=== PATIENT | female | born 1940 | race Caucasian/White ===

== ENCOUNTER 2023-06-09 04:29 | Emergency (ER) | payer MEDICARE, OTHER, SELFPAY ==
--- NOTE | 2023-06-09 | ECG_ITS ---
Test Reason : rapid heart rate Blood Pressure : / mmHG Vent. Rate : 133 BPM Atrial Rate : 000 BPM P-R Int : 000 ms QRS Dur : 086 ms QT Int : 328 ms P-R-T Axes : 000 039 -36 degrees QTc Int : 488 ms Atrial fibrillation with rapid ventricular response ST & T wave abnormality, consider inferior ischemia Abnormal ECG When compared with ECG of 19-OCT-2019 05:42, Nonspecific T wave abnormality now evident in Lateral leads Referred By: Generic ED Physician Electronically Signed By:KRISTI DE LA TORRE MD
--- NOTE | ~2023-06-09 | CT_ITS ---
CT head/brain wo IV con CLINICAL INFORMATION: Reason for Exam Severe headache COMPARISON: Prior CT scan from 2019 TECHNIQUE: Department standard protocol. This CT examination was performed using dose optimization techniques as appropriate, variously including the following: *Automated exposure control *Adjustment of mA and/or kV according to patient size (this includes techniques or standardized protocols for targeted exams where dose is matched to indication/reason for exam; i.e. extremities or head) *Use of iterative reconstruction technique DLP: 778 mGy-cm FINDINGS: CEREBRAL HEMISPHERES: There is no evidence of intra-axial or extra-axial mass, hemorrhage or acute infarct. BRAIN PARENCHYMA: Deep white matter and paraventricular hypoattenuation, nonspecific; most likely changes secondary to chronic ischemia due to microvascular angiopathy. This has especially increased around the deep white matter right frontal region, cannot rule out underlying subacute territorial infarct. There is no associated bleed. SUBDURAL SPACE: No bleed. BASAL GANGLIA AND PINEAL GLAND: Unremarkable VENTRICLES: Symmetric and normal in size. CEREBELLUM AND BRAINSTEM: No space-occupying mass, hemorrhage or acute infarct. CEREBELLOPONTINE ANGLES: No lesion found. ORBITS: No intraorbital mass. VESSELS: Hyperdense left transverse sinus with Hounsfield units higher than 60 raise concern for possible venous thrombosis. No CT evidence of associated venous infarct. SKULL BASE: Unremarkable INCLUDED SINUSES AT SKULL BASE: Clear SKULL AND SKIN: No fracture or bone lesion found. 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 This has especially increased around the deep white matter right frontal region, cannot rule out underlying partial territorial infarct. There is no associated bleed. * Hyperdense left transverse sinus with Hounsfield units higher than 60 raise concern for possible venous thrombosis. No CT evidence of associated venous infarct. Consider correlation with follow-up MRV. (Referring physician staff is being called, by physician staff assistance, to be alerted of the above critical findings and recommendations.) JOSEFINA 06/09/2023 7:38 AM
[2023-06-09 04:32] VITALS: BP 195/116; PULSE 141; RESP 20; TEMP 37; O2SAT 95; BMI 23.6
[2023-06-09 05:00] LABS: Basophils Percent Auto 0.6 % (0-2); Eosinophils Absolute Auto 0.2 X10*3/uL (0.0-0.4); Eosinophils Percent Auto 2.4 % (0-4); Hematocrit 45.7 % (37.0-47.0); Hemoglobin 15.1 g/dl (12.0-16.0); Imm Gran Abs Auto 0.02 X10*3/uL (0.00-0.03); Imm Gran Pct Auto 0.3 % (0.0-0.4); Lymphocytes Percent Auto 15.1 % (20-40); MANUAL DIFF FLAG NO; Mean Corpuscular Hemoglobin 32.4 pg (27.0-33.0); Mean Corpuscular Volume 98.1 fL (80.0-98.0); Mean Platelet Volume 9.4 fL (9.4-12.3); Monocytes Absolute Auto 0.6 X10*3/uL (0.1-1.2); Monocytes Percent Auto 9.3 % (2-11); Neutrophils Absolute Auto 4.6 x10*3/uL (2.0-8.3); Neutrophils Percent Auto 72.3 % (45-73); Platelet Count 325 X10*3/uL (160-400); Red Blood Count 4.66 X10*6/uL (4.20-5.50); White Blood Count 6.4 X10*3/uL (4.8-10.8)
[2023-06-09] MEDS: Labetalol HCL 100 MG/20 ML VIAL IVPUSH (05:04)
--- NOTE | 2023-06-09 05:04 | ED.WEAKNESS ---
HPI - Weakness General Chief complaint: Weakness Stated complaint: Weakness/Dizziness Time Seen by Provider: 06/09/23 04:42 Source: patient and family () Mode of arrival: ambulatory History of Present Illness HPI Narrative: 82-year-old female with known atrial fibrillation, states that she takes medication for rate control once a day but has stopped taking her blood thinners due to a prior intracranial hemorrhage. Patient states that she got up to go to the bathroom this morning and when washing her hands started to feel weak and then wanted clean the floor and stated that her arms started to ache. She states that this all happened around 0 400, she denies any recent fever, chills, nausea/vomiting/abdominal pain denies any urinary pain/burning/frequency. Related Data Allergies Allergy/AdvReac Type Severity Reaction Status Date / Time No Known Allergies Allergy Unverified 08/16/20 14:57 [No Known Allergies*] Review of Systems Review of Systems: Pertinent positives and negatives as stated in HPI PMFSH Past Medical History Source: nursing notes reviewed Social History Social History Alcohol intake: never Smoked in Last 30 Days: No Use of substances other than those prescribed or required for medical reasons: No Advance Directives: No Advance Directives Information Provided: Yes Physical Exam Vital Signs: Vital Signs: Last Vital Signs Temp 97.8 F 06/09/23 05:24 Pulse 107 H 06/09/23 06:23 Resp 20 06/09/23 06:23 BP 159/99 H 06/09/23 06:23 Pulse Ox 94 06/09/23 06:23 O2 Del Method Room Air 06/09/23 06:23 BMI result Body Mass Index 23.6 VITAL SIGNS: Reviewed. GENERAL: Well developed, well nourished, in no acute distress. HEAD: Normocephalic/atraumatic EYES: PERRLA, EOMI EARS: Ext canals without abnormality NOSE: Nares patent bilateral OROPHARYNX: no oral lesions noted, posterior pharynx clear NECK: Supple, no adenopathy LUNGS: Normal breath sounds. No adventitious sounds or accessory muscle use. SpO2<95> CARDIOVASCULAR: IRR/IRR, rapid, and rhythm without noted murmurs, no JVD or lower extremity edema. ABDOMEN: Soft, non-tender, non-distended with bowel sounds. MUSCULOSKELETAL: No tenderness, deformities, or effusions noted on gross inspection. EXTREMITIES: No cyanosis, clubbing or edema. SKIN: Inspection of the skin reveals no rashes NEUROLOGIC: Alert and oriented x 4. Strength and sensation to light touch were grossly intact x 4. Medications Administered Discontinued Medications Generic Name Dose Route Start Last Admin Trade Name Freq PRN Reason Stop Dose Admin Acetaminophen 975 mg 06/09/23 05:19 06/09/23 05:28 Acetaminophen 325 Mg Tablet PO 06/09/23 05:20 975 mg ONCE ONE Administration Diltiazem HCl 180 mg 06/09/23 06:11 06/09/23 06:26 Diltiazem Hcl Sr 90 Mg Cap.Er.12h PO 06/09/23 06:12 180 mg ONCE ONE Administration Protocol Labetalol HCl 2.5 mg 06/09/23 04:50 06/09/23 05:04 Labetalol Hcl 100 Mg/20 Ml Vial IVPUSH 06/09/23 04:51 2.5 mg ONCE ONE Administration Metoprolol Tartrate 2.5 mg 06/09/23 05:05 06/09/23 05:06 Metoprolol Tartrate 5 Mg/5 Ml Vial IVPUSH 06/09/23 05:06 2.5 mg ONCE ONE Administration Metoprolol Tartrate 5 mg 06/09/23 05:19 06/09/23 05:28 Metoprolol Tartrate 5 Mg/5 Ml Vial IVPUSH 06/09/23 05:20 5 mg ONCE ONE Administration Metoprolol Tartrate 25 mg 06/09/23 06:11 06/09/23 06:21 Metoprolol Tartrate 25 Mg Tablet PO 06/09/23 06:12 25 mg ONCE ONE Administration Protocol Potassium Chloride 60 meq 06/09/23 05:25 06/09/23 05:36 Potassium Chloride Er 20 Meq Tab.Er.Prt PO 06/09/23 05:26 60 meq ONCE ONE Administration Medical Decision Making Medical Decision Making [facility] Narrative: 0506: 82-year-old female with history and clinical presentation consistent with atrial fibrillation with RVR, also noted to be hypertensive, will evaluate to determine etiology such as infection, anemia, electrolyte abnormalities. Patient has no focal findings. Patient received a total of 7.5 mg of Lopressor for rate control and then followed by 2.5 mg of labetalol for blood pressure control. 0613: I gave patient her oral medication of 25 mg of Lopressor tartrate and 180 mg of Cardizem. Patient still complained of headache and so received 400 mg of ibuprofen and will proceed with CT of the head to ensure no intracranial hemorrhage, patient is nonfocal. On review of all investigations, hematologic indices are negative for evidence of infection or anemia and otherwise grossly within normal limits. Chemistry indices were significant for a low potassium with normal magnesium which was repleted with 60 mEq orally. The noted increase in BNP was treated with 40 mg of Lasix p.o. overall, I suspect patient's atrial fibrillation may be attributed to poor medication adherence and the possibility of low potassium. She is strongly encouraged to follow-up with her primary care provider. Signed out to Dr Molina - CT head - UA - Headache improvement Differential Diagnosis Differential Diagnoses: The differential diagnosis associated with the presentation includes Please see the discussion above Admission/Observation Consideration of admission/observation: Escalation of care including admission/observation considered Lab Data MDM Lab Attestation statement: I reviewed the patient's lab results. Please see the discussion above 06/09/23 04:53 06/09/23 04:53 Labs: Lab Results 06/09/23 06/09/23 06/09/23 Range/Units 04:53 04:53 04:53 WBC 6.4 (4.8-10.8) X10*3/uL RBC 4.66 (4.20-5.50) X10*6/uL Hgb 15.1 (12.0-16.0) g/dl Hct 45.7 (37.0-47.0) % MCV 98.1 H (80.0-98.0) fL MCH 32.4 (27.0-33.0) pg MCHC 33.0 (31.0-35.0) g/dl RDW 13.0 (11.0-16.0) % Plt Count 325 (160-400) X10*3/uL MPV 9.4 (9.4-12.3) fL Immature Gran % (Auto) 0.3 (0.0-0.4) % Neut % (Auto) 72.3 (45-73) % Lymph % (Auto) 15.1 L (20-40) % [place] % (Auto) 9.3 (2-11) % Eos % (Auto) 2.4 (0-4) % Baso % (Auto) 0.6 (0-2) % Lymph # (Auto) 1.0 L (1.2-4.9) X10*3/uL [place] # (Auto) 0.6 (0.1-1.2) X10*3/uL Eos # (Auto) 0.2 (0.0-0.4) X10*3/uL Baso # (Auto) 0.0 (0.0-0.2) X10*3/uL Abs Immat Gran (auto) 0.02 (0.00-0.03) X10*3/uL Absolute Neuts (auto) 4.6 (2.0-8.3) x10*3/uL Absolute Nucleated RBC 0.000 (0.0-0.012) X10*3/uL Nucleated RBC % (auto) 0.0 (0.0-0.2) /100WBC PT 12.0 (10.0-13.1) SEC INR 1.0 (0.9-1.1) Sodium 143 (135-145) mmol/L Potassium 3.2 L (3.3-5.1) mmol/L Chloride 102 (96-108) mmol/L Carbon Dioxide 27 (22-29) mmol/L Anion Gap 17 (12-20) BUN 17 H (9-16) mg/dL Creatinine 0.83 (0.5-1.4) mg/dL Estim Creat Clear Calc 49.7 Estimated GFR > 60 Random Glucose 128 H (60-115) mg/dL Calcium 10.1 (8.4-10.2) mg/dL Magnesium 2.1 (1.6-2.6) mg/dL Total Bilirubin 1.0 (0.0-1.0) mg/dL AST 19 (5-31) U/L ALT 8 (0-31) U/L Alkaline Phosphatase 74 (39-117) U/L Troponin I High Sens (<3.5-17.0) ng/L B-Natriuretic Peptide (<100) pg/mL Total Protein 7.7 (6.5-8.0) g/dL Albumin 4.0 (3.5-5.0) g/dL 07/11/23 07/11/23 Range/Units 04:53 04:53 WBC (4.8-10.8) X10*3/uL RBC (4.20-5.50) X10*6/uL Hgb (12.0-16.0) g/dl Hct (37.0-47.0) % MCV (80.0-98.0) fL MCH (27.0-33.0) pg MCHC (31.0-35.0) g/dl RDW (11.0-16.0) % Plt Count (160-400) X10*3/uL MPV (9.4-12.3) fL Immature Gran % (Auto) (0.0-0.4) % Neut % (Auto) (45-73) % Lymph % (Auto) (20-40) % [place] % (Auto) (2-11) % Eos % (Auto) (0-4) % Baso % (Auto) (0-2) % Lymph # (Auto) (1.2-4.9) X10*3/uL [place] # (Auto) (0.1-1.2) X10*3/uL Eos # (Auto) (0.0-0.4) X10*3/uL Baso # (Auto) (0.0-0.2) X10*3/uL Abs Immat Gran (auto) (0.00-0.03) X10*3/uL Absolute Neuts (auto) (2.0-8.3) x10*3/uL Absolute Nucleated RBC (0.0-0.012) X10*3/uL Nucleated RBC % (auto) (0.0-0.2) /100WBC PT (10.0-13.1) SEC INR (0.9-1.1) Sodium (135-145) mmol/L Potassium (3.3-5.1) mmol/L Chloride (96-108) mmol/L Carbon Dioxide (22-29) mmol/L Anion Gap (12-20) BUN (9-16) mg/dL Creatinine (0.5-1.4) mg/dL Estim Creat Clear Calc Estimated GFR Random Glucose (60-115) mg/dL Calcium (8.4-10.2) mg/dL Magnesium (1.6-2.6) mg/dL Total Bilirubin (0.0-1.0) mg/dL AST (5-31) U/L ALT (0-31) U/L Alkaline Phosphatase (39-117) U/L Troponin I High Sens 6.8 (<3.5-17.0) ng/L B-Natriuretic Peptide 181 H (<100) pg/mL Total Protein (6.5-8.0) g/dL Albumin (3.5-5.0) g/dL Independent Interpretation I performed an independent interpretation of an: EKG Interpretation: Atrial fibrillation with RVR, HR-133, no STEMI, QRS/QTC are within normal limits. External Record Review External record reviewed: Outpatient record and Prior outpatient labs Chronic Conditions Patient?s care impacted by: Hypertension Critical Care Time Critical Care Time Critical Care Time: Yes Total Critical Care Time: 30 Attestation: I personally attest to this time spent taking care of the patient. Discharge Plan Discharge Clinical Impression: Atrial fibrillation with RVR, Hypokalemia Patient Disposition: Still a Patient
[2023-06-09] MEDS: Metoprolol Tartrate 5 MG/5 ML VIAL 2.5 MG IVPUSH (05:06)
[2023-06-09 05:07] VITALS: BP 175/99; PULSE 125; RESP 17; TEMP 36.7; O2SAT 93
[2023-06-09 05:15] LABS: Alanine Aminotransferase 8 U/L (0-31); Alkaline Phosphatase 74 U/L (39-117); Anion Gap 17 (12-20); Aspartate Amino Transferase 19 U/L (5-31); Blood Urea Nitrogen 17 mg/dL (9-16); Calcium 10.1 mg/dL (8.4-10.2); Carbon Dioxide 27 mmol/L (22-29); Chloride 102 mmol/L (96-108); Creatinine Clr Calc Pharmacy 49.7; Estimated Glomerular Filt Rate > 60; Glucose Random 128 mg/dL (60-115); Magnesium 2.1 mg/dL (1.6-2.6); Potassium 3.2 mmol/L (3.3-5.1); Sodium 143 mmol/L (135-145); Total Protein 7.7 g/dL (6.5-8.0)
[2023-06-09 05:22] LABS: Troponin-I High Sensitivity 6.8 ng/L (<3.5-17.0)
[2023-06-09 05:24] VITALS: BP 164/105; PULSE 97; RESP 18; TEMP 36.6; O2SAT 92
[2023-06-09] MEDS: Acetaminophen 325 MG TABLET 975 MG PO (05:28)
[2023-06-09] MEDS: Metoprolol Tartrate 5 MG/5 ML VIAL IVPUSH (05:28)
[2023-06-09] MEDS: Potassium Chloride ER 20 MEQ TAB.ER.PRT 60 MEQ PO (05:36)
[2023-06-09 06:03] VITALS: BP 167/110; PULSE 109; RESP 18; O2SAT 94
[2023-06-09] MEDS: Metoprolol Tartrate 25 MG TABLET PO (06:21)
[2023-06-09 06:23] VITALS: BP 159/99; PULSE 107; RESP 20; O2SAT 94
[2023-06-09] MEDS: dilTIAZem HCL SR 90 MG CAP.ER.12H 180 MG PO (06:26)
[2023-06-09 06:36] LABS: B Type Natriuretic Peptide 181 pg/mL (<100)
--- NOTE | 2023-06-09 06:44 | PC.NURSE ---
Pt brought to CT for CT head
[2023-06-09] MEDS: Furosemide 40 MG TABLET PO (07:00)
[2023-06-09 07:01] VITALS: BP 150/99; PULSE 97; RESP 18; TEMP 36.4; O2SAT 93
--- NOTE | 2023-06-09 07:10 | PC.NURSE ---
alert and oriented, resp even and unlabored. resting in bed with purewick in place, awaiting ct scan results at this time.
[2023-06-09 08:40] LABS: Appearance Urine Clear; Color Urine Yellow; Glucose Urine UA Negative (Negative); Leukocyte Esterase Urine Negative (Negative); Nitrite Urine Negative (Negative); PH 7.5 (5.0-9.0); Urine Blood Negative (Negative); Urine Ketones Negative (Negative); Urine Protein Negative (Neg-Trace)
== END 2023-06-09 09:43 | disposition home or self-care (01) ==
PROVIDERS: Student in an Organized Health Care Education/Training Program; Emergency Provider Emergency Medicine Emergency Medical Services
DX: I48.20 Chronic atrial fibrillation, unspecified (principal); E87.6 Hypokalemia; R53.1 Weakness; I10 Essential (primary) hypertension; R51.9 Headache, unspecified
CPT/HCPCS: 36415; 70450; 80053; 81003; 83735; 83880; 84484; 85025; 85610; 93005; 96374; 96375; 96376; 99285

== ENCOUNTER → 2023-06-09 04:39 | Outpatient (BNV) | payer MEDICARE, OTHER, SELFPAY | PROVIDERS: Emergency Provider Emergency Medicine Emergency Medical Services; Visit Provider Internal Medicine Cardiovascular Disease | DX: R53.1 Weakness (principal) | CPT/HCPCS: 93010 ==

== ENCOUNTER 2023-08-01 20:14 | Emergency (ER) | payer MEDICARE, OTHER, SELFPAY ==
--- NOTE | ~2023-08-01 | XR_ITS ---
EXAMINATION: XR ELBOW, LEFT CLINICAL INFORMATION: Fall COMPARISON: None available. TECHNIQUE: AP, lateral, and oblique views of the left elbow. FINDINGS: Articular alignment is anatomic. There is a nondisplaced fracture of the radial head. Associated joint effusion is present. Vascular calcification noted in the forearm. XR/XR elbow LT min 3V IMPRESSION: Nondisplaced fracture of the radial head with associated joint effusion.
--- NOTE | ~2023-08-01 | CT_ITS ---
EXAMINATION: NONCONTRAST HEAD CT NONCONTRAST MAXILLOFACIAL CT NONCONTRAST CERVICAL SPINE CT INDICATION INFORMATION: Fall, facial injury COMPARISON: 06/09/2023 TECHNIQUE: Separate noncontrast CT examinations of the head, maxillofacial bones, and cervical spine were performed. Coronal and sagittal images were created for each examination at the technologist workstation. DOSE LOWERING TECHNIQUES: This CT examination was performed using dose optimization techniques as appropriate, variously including the following: - Automated exposure control - Adjustment of mA and/or kV according to patient size (this includes techniques or standardized protocols for targeted exams were dose is matched to indication/reason for exam; i.e. extremities or head) - Use of iterative reconstruction technique DLP: 1061 mGy-cm FINDINGS: Head: There is no evidence of acute intracranial hemorrhage or territorial infarction. No abnormal mass-effect or midline shift is seen. Cabrera to white matter differentiation is well preserved. No extra-axial fluid collections are identified. The ventricles are normal in size. There is moderate periventricular white matter hypoattenuation consistent with chronic small vessel ischemic disease. The osseous structures and soft tissues are normal. The mastoid air cells are well aerated. Maxillofacial: There are fractures of the bilateral lateral pterygoid, medial left pterygoid, and possibly medial right pterygoid plates. There are also fractures of the lateral left maxillary sinus wall with multiple foci of adjacent soft tissue gas, and fracture of the medial right maxillary sinus wall; possible nondisplaced fracture of the lateral right maxillary sinus wall. There is a mildly depressed, comminuted fracture of the anterior wall of the right maxillary sinus. Left nasal bone fracture is also noted. There is moderate opacification of the right maxillary sinus and slight opacification of the left maxillary sinus. Remaining paranasal sinuses are aerated. There is rightward deviation of the nasal septum. The mandibular condyles are well-seated in the condylar fossa. The globes are intact, and there are no suspicious findings to suggest retrobulbar hemorrhage. Cervical spine: There is anatomic alignment of the vertebral bodies and posterior elements. Vertebral body heights are maintained. There is disc space narrowing and endplate irregularity/osteophyte formation in the mid to lower cervical spine. No evidence of acute fracture. No prevertebral soft tissue swelling. Lung apices are not adequately included on this exam. Visualized left thyroid lobe is enlarged and heterogeneous, not adequately assessed on this exam. CT/CT cervical spine wo IV con IMPRESSION: HEAD: No acute intracranial findings. FACIAL BONES: Fractures of the bilateral pterygoid plates and maxillary sinus martinez as described above. Left nasal bone fracture. CERVICAL SPINE: No acute findings identified. Partially visualized enlarged left thyroid lobe, not adequately assessed on this exam; this may be further evaluated with ultrasound if not already performed.
--- NOTE | ~2023-08-01 | XR_ITS ---
EXAMINATION: XR WRIST, RIGHT XR HAND, RIGHT CLINICAL INFORMATION: Fall COMPARISON: None available. TECHNIQUE: PA, lateral, and oblique views of the right wrist and PA, lateral, and oblique views of the right hand FINDINGS: Alignment throughout the wrist and hand is anatomic. Osteopenia is noted. No acute fracture is seen. There is moderate to severe degenerative change at the basal joint of the thumb. Joint space narrowing noted within the digits. Vascular calcification is present in the distal forearm/wrist. No significant focal soft tissue abnormality identified. XR/XR hand wrist RT IMPRESSION: No acute findings identified.
[2023-08-01 20:35] VITALS: BP 165/106; PULSE 89; RESP 18; TEMP 36.3; O2SAT 96; BMI 22.4
--- NOTE | 2023-08-01 20:35 | ED_ITS ---
HPI - Fall General Chief Complaint: Fall Stated Complaint: fell nose bleed Time Seen by Provider: 08/01/23 21:08 Source: patient Mode of arrival: ambulatory Limitations: no limitations History of Present Illness HPI Narrative: 82yo F w/PMHx c/o facial injury, nasal pain, LUE and RUE digit pain s/p dog pulling her over on leash around 7PM. Denies LOC. Takes ASA. Had epistaxis from the right nostril and is still going on, ecchymosis of left cheek denies neck pain patient fell forward hitting her nose to the concrete. Able to ambulate when she opens her mouth she has pain in the bilateral mandible area Related Data Previous Rx's Medication Instructions Recorded amoxicillin 875 mg-potassium 1 tab PO BID #20 tabs 08/01/23 clavulanate 125 mg tablet Allergies Allergy/AdvReac Type Severity Reaction Status Date / Time No Known Allergies Allergy Unverified 08/16/20 14:57 [No Known Allergies*] Review of Systems Review of Systems: Yes all other systems are reviewed and are negative [facility] Social History Social History Alcohol intake: never Advance Directives: No Advance Directives Information Provided: No Physical Exam Vital Signs: Vital Signs: Last Vital Signs Temp 97.3 F 08/01/23 20:35 Pulse 86 08/01/23 23:07 Resp 16 08/01/23 23:07 BP 172/110 H 08/01/23 23:07 Pulse Ox 91 L 08/01/23 23:07 O2 Del Method Room Air 08/01/23 23:07 BMI result Body Mass Index 22.4 Appearance: Alert. Oriented X3. No acute distress. Eyes: PERRLA, No Nystagmus ENT: Pharynx normal. Oral Mucosa moist oozing from right nose with anterior bleed slight tenderness bilateral mandible angle no deformity ecchymosis of left cheek with swelling over the maxillary area bilateral Neck: Normal inspection. Neck supple. No midline tenderness good range of movement CVS: Normal heart rate and rhythm. Pulses normal. Respiratory: No respiratory distress. Equal air entry bilateral, no whe ezing/rales/rhonchi Abdomen: Soft and nontender. Bowel sounds are present, no mass palpable, no CVA tenderness Skin: Skin warm and dry. Normal skin color. Normal skin turgor. Extremities: No lower extremity edema. No calf tenderness hips good range of movement Neuro: Oriented X 3. No motor deficit. No sensory deficit.No cerebellar signs , cranial nerves II-XII intact Course Course Course Narrative: RME: 82yo F w/PMHx c/o facial injury, nasal pain, LUE and RUE digit pain s/p dog pulling her over on leash around 7PM. Denies LOC. Takes ASA. Admits to immediate epistaxis which is resolved. denies neck pain +nasal/facial swelling and ttp, +dry blood in mouth, +L elbow ttp, +ecchymosis to R wrist and 5th digit w/ttp CTs and XRs ordered Full HPI, ROS and PE to be performed by primary ED provider. Medications Administered Discontinued Medications Generic Name Dose Route Start Last Admin Trade Name Freq PRN Reason Stop Dose Admin Acetaminophen 650 mg 08/01/23 21:28 08/01/23 21:34 Acetaminophen 325 Mg Tablet PO 08/01/23 21:29 650 mg ONCE ONE Administration Amoxicillin/Clavulanate Potassium 875 mg 08/01/23 22:28 08/01/23 22:45 Amoxicillin/Potassium Clav 875 Mg Tablet PO 08/01/23 22:29 875 mg ONCE ONE Administration Tranexamic Acid 500 mg 08/01/23 22:30 08/01/23 22:45 Tranexamic Acid 1,000 Mg/10 Ml Vial INTRANASAL 08/01/23 22:31 500 mg ONCE ONE Administration Procedures Epistaxis Control Nostril: Yes right Nose prepped with: Yes other (TXA) Direct inspection: Yes anterior source identified Direct inspection method: Yes otoscope Clots removed by: Yes blowing nose Epistaxis treatment: Yes TXA soaked gauze and Yes petroleum coated ribbon gauze Results of treatment: Yes bleeding controlled Complications: Yes none Medical Decision Making Medical Decision Making MDM Narrative: Patient with nasal fracture maxillary fracture with epistaxis which got decreased after TXA patient able to tolerate nasal tampon iodoform gauze was placed as a packing as plain petroleum jelly packing was not available bleeding stopped Differential Diagnosis Differential Diagnoses: The differential diagnosis associated with the presentation includes Fracture of maxillary /skull fracture/intracranial bleed/cervical spine fracture/elbow fracture/hand fracture/subdural hematoma Radiology Impression Discussion of test interpretation with radiology: I have reviewed the radiologist's reading. Radiologist Impression: XR/XR elbow LT min 3V IMPRESSION: Nondisplaced fracture of the radial head with associated joint effusion. ?[address] [address] [address] Scan Report Signed Patient: Carley Tran MR#: [id number] : 1940 Acct:[id number] Age/Sex: 82 / F ADM Date: 08/01/23 Loc: HO.ED Attending Dr: Ordering Physician: Jenae Jonas Date of Service: 08/01/23 Procedure(s): CT facial bones wo IV con Accession Number(s): [id number] cc: Jenae Jonas; GENOVEVA PENALOZA~ EXAMINATION: NONCONTRAST HEAD CT NONCONTRAST MAXILLOFACIAL CT NONCONTRAST CERVICAL SPINE CT INDICATION INFORMATION: Fall, facial injury COMPARISON: 06/09/2023 TECHNIQUE: Separate noncontrast CT examinations of the head, maxillofacial bones, and cervical spine were performed. Coronal and sagittal images were created for each examination at the technologist workstation. DOSE LOWERING TECHNIQUES: This CT examination was performed using dose optimization techniques as appropriate, variously including the following: ?- Automated exposure control ?- Adjustment of mA and/or kV according to patient size (this includes techniques or standardized protocols for targeted exams were dose is matched to indication/reason for exam; i.e. extremities or head) ?- Use of iterative reconstruction technique DLP: 1061 mGy-cm FINDINGS: Head: There is no evidence of acute intracranial hemorrhage or territorial infarction. No abnormal mass-effect or midline shift is seen. Cabrera to white matter differentiation is well preserved. No extra-axial fluid collections are identified. The ventricles are normal in size. There is moderate periventricular white matter hypoattenuation consistent with chronic small vessel ischemic disease. The osseous structures and soft tissues are normal. The mastoid air cells are well aerated. Maxillofacial: There are fractures of the bilateral lateral pterygoid, medial left pterygoid, and possibly medial right pterygoid plates. There are also fractures of the lateral left maxillary sinus wall with multiple foci of adjacent soft tissue gas, and fracture of the medial right maxillary sinus wall; possible nondisplaced fracture of the lateral right maxillary sinus wall. There is a mildly depressed, comminuted fracture of the anterior wall of the right maxillary sinus. Left nasal bone fracture is also noted. There is moderate opacification of the right maxillary sinus and slight opacification of the left maxillary sinus. Remaining paranasal sinuses are aerated. There is rightward deviation of the nasal septum. The mandibular condyles are well-seated in the condylar fossa. The globes are intact, and there are no suspicious findings to suggest retrobulbar hemorrhage. Cervical spine: There is anatomic alignment of the vertebral bodies and posterior elements. Vertebral body heights are maintained. There is disc space narrowing and endplate irregularity/osteophyte formation in the mid to lower cervical spine. No evidence of acute fracture. No prevertebral soft tissue swelling. Lung apices are not adequately included on this exam. Visualized left thyroid lobe is enlarged and heterogeneous, not adequately assessed on this exam. CT/CT facial bones wo IV con IMPRESSION: HEAD: No acute intracranial findings. ? FACIAL BONES: Fractures of the bilateral pterygoid plates and maxillary sinus martinez as described above. Left nasal bone fracture. ? CERVICAL SPINE: No acute findings identified. Partially visualized enlarged left thyroid lobe, not adequately assessed on this exam; this may be further evaluated with ultrasound if not already performed. Discharge Plan Discharge Clinical Impression: Facial fracture due to fall, Fracture of left distal radius, Closed fracture nasal bone, Acute anterior epistaxis Patient Disposition: Home, Self-Care Instructions: Arm Fracture in Adults (ED), Nasal Fracture (ED), Facial Fracture (ED), Nosebleed (ED) Additional Instructions: Wear the sling for support and follow with Orthopedics for further evaluation for left elbow fracture Keep the nasal packing for [address] then removed the packing Antibiotic to prevent infection Tylenol for pain as needed Prescriptions: New amoxicillin-pot clavulanate 875-125 mg tablet 1 tab PO BID Qty: 20 0RF Referrals: Garo Ramey MD [Physician] - 3 days Interventions: ED Discharge Assessment Last Done: 08/01/23 23:26 Discharge Date/Time: 08/01/23 23:40
[2023-08-01] MEDS: Acetaminophen 325 MG TABLET 650 MG PO (21:34)
[2023-08-01] MEDS: Amoxicillin/Potassium Clav 875 MG TABLET PO (22:45)
[2023-08-01] MEDS: Tranexamic Acid 1,000 MG/10 ML VIAL 500 MG INTRANASAL (22:45)
[2023-08-01 23:07] VITALS: BP 172/110; PULSE 86; RESP 16; O2SAT 91
== END 2023-08-01 23:40 | disposition home or self-care (01) ==
PROVIDERS: Emergency Provider Internal Medicine; PCP Physician Assistant
DX: R04.0 Epistaxis (principal); S02.2XXA Fracture of nasal bones, initial encounter for closed fracture; S02.40DA Maxillary fracture, left side, initial encounter for closed fracture; S52.125A Nondisplaced fracture of head of left radius, initial encounter for closed fracture; W54.8XXA Other contact with dog, initial encounter; Y93.K1 Activity, walking an animal; Y92.414 Local residential or business street as the place of occurrence of the external cause; Y99.9 Unspecified external cause status
CPT/HCPCS: 30901; 70450; 70486; 72125; 73080; 73110; 73130; 99283; 99284

== ENCOUNTER 2024-01-03 16:09 | Emergency (ER) | payer MEDICARE, OTHER, SELFPAY ==
--- NOTE | ~2024-01-03 | XR_ITS ---
EXAMINATION: XR KNEE, LEFT CLINICAL INFORMATION: Fall, pain. COMPARISON: None available. TECHNIQUE: Four views of the left knee. FINDINGS: No fracture or subluxation. Moderate tricompartmental degenerative changes with joint space narrowing and subcortical sclerosis, more noticeable in the medial compartment. No osseous erosions. No chondrocalcinosis. No joint effusion. Moderate to severe vascular calcifications. XR/XR knee LT 3V IMPRESSION: 1. No acute fracture or malalignment. 2. Moderate tricompartmental degenerative changes.
--- NOTE | ~2024-01-03 | XR_ITS ---
EXAMINATION: XR FOOT, LEFT CLINICAL INFORMATION: Fall, pain. COMPARISON: None available. TECHNIQUE: AP, lateral, and oblique views of the left foot. FINDINGS: Decreased bone mineralization. No acute fractures or subluxation. Moderate multifocal degenerative osteoarthritis. Nonspecific diffuse soft tissue swelling. Moderate to severe vascular calcifications. XR/XR foot LT min 3V IMPRESSION: 1. No acute fractures or subluxation. 2. Decreased bone mineralization. 3. Moderate multifocal degenerative osteoarthritis.
[2024-01-03 16:16] VITALS: BP 170/100; PULSE 84; O2SAT 96
[2024-01-03 16:23] VITALS: BP 185/101; PULSE 106; RESP 18; TEMP 36.7; O2SAT 95; BMI 22.3
--- NOTE | 2024-01-03 16:56 | ED_ITS ---
HPI - Fall General Chief Complaint: Fall Stated Complaint: FALL,PAIN TO KNEES AND L FOOT Time Seen by Provider: 01/03/24 16:30 Source: patient Mode of arrival: ambulatory Limitations: no limitations History of Present Illness HPI Narrative: Patient with history of atrial fibrillation on aspirin only apparently had a mechanical fall when she was entering the [employer] tripped on door threshold hitting her left forehead took last and stumbled down on her knees complaining of mild pain in the left foot and the knee no loss of consciousness nausea no vomiting no dizziness no chest pain patient feels normal at this time Related Data Previous Rx's Medication Instructions Recorded amoxicillin 875 mg-potassium 1 tab PO BID #20 tabs 08/01/23 clavulanate 125 mg tablet Allergies Allergy/AdvReac Type Severity Reaction Status Date / Time No Known Allergies Allergy Unverified 08/16/20 14:57 [No Known Allergies*] Review of Systems Review of Systems: Yes all other systems are reviewed and are negative [facility] Past Medical History Medical History (Updated 01/04/24 @ 00:01 by Abdirizak Dove) Hypertension Atrial fibrillation Social History Social History Alcohol intake: never Advance Directives: No Advance Directives Information Provided: No Physical Exam Vital Signs: Vital Signs: Last Vital Signs Temp 98.0 F 01/03/24 16:23 Pulse 112 H 01/03/24 17:13 Resp 20 01/03/24 17:13 BP 167/102 H 01/03/24 17:13 Pulse Ox 95 01/03/24 17:13 O2 Del Method Room Air 01/03/24 17:13 BMI result Body Mass Index 22.3 Appearance: Alert. Oriented X3. No acute distress. Eyes: PERRLA, No Nystagmus ENT: Pharynx normal. Oral Mucosa moist Neck: Normal inspection. Neck supple. CVS: Irregularly irregular heart rate no murmur rub or gallop. Pulses normal. Respiratory: No respiratory distress. Equal air entry bilateral, no wheezing/rales/rhonchi Abdomen: Soft and nontender. Bowel sounds are present, Skin: Skin warm and dry. Normal skin color. Normal skin turgor. Extremities: No lower extremity edema. No calf tenderness mild soft tissue swelling of the knee with good range of movement patient able to ambulate in the ER Neuro: Oriented X 3. No motor deficit. No sensory deficit.No cerebellar signs , cranial nerves II-XII intact Medical Decision Making Medical Decision Making MDM Narrative: Patient has stable vitals able to in the ER had a minor near fall or significant head injury no loss of consciousness patient vitals are stable discharge patient home Independent Interpretation I performed an independent interpretation of an: Plain X-Ray Radiology Impression Discussion of test interpretation with radiology: I have reviewed the radiologist's reading. Discharge Plan Discharge Clinical Impression: Accident due to mechanical fall without injury Patient Disposition: Home, Self-Care Instructions: Fall Prevention for Older Adults (ED) Additional Instructions: Care and cautions as advised Taking medication for atrial fibrillation and high blood pressure as prescribed Follow with PCP if any concerns Prescriptions: No Action amoxicillin-pot clavulanate 875-125 mg tablet 1 tab PO BID Qty: 20 0RF Interventions: ED Discharge Assessment Last Done: 01/03/24 19:02 Discharge Date/Time: 01/03/24 19:02
--- NOTE | 2024-01-03 17:12 | MHC.EDTECH ---
patient ambulated to the bathroom without any devices or assistance from staff.
[2024-01-03 17:13] VITALS: BP 167/102; PULSE 112; RESP 20; O2SAT 95
--- NOTE | 2024-01-03 17:22 | MHC.EDTECH ---
Patient refusing EKG.
== END 2024-01-03 19:02 | disposition home or self-care (01) ==
PROVIDERS: Emergency Provider Internal Medicine
DX: M25.562 Pain in left knee (principal); M79.672 Pain in left foot
CPT/HCPCS: 73562; 73630; 99283